=== PATIENT | female | born 2000 | race Caucasian/White ===

== ENCOUNTER 2020-04-17 01:12 | Emergency (ER) | payer SELFPAY ==
[2020-04-17] VITALS (7 sets, daily range): BP systolic 95–122; BP diastolic 49–75; PULSE 65–114; RESP 13–16; TEMP 35.9; O2SAT 97–100; BMI 27.3
--- NOTE | 2020-04-17 01:19 | ED.DCSUM_ITS ---
History of Present Illness Chief Complaint: Substance Abuse Informant: Patient, Significant Other Onset: Yesterday Narrative: Patient presents secondary to nausea and vomiting. Per boyfriend's report at bedside he was not present but reportedly states the patient was nauseated, vomited multiple times, and was too weak to walk to her car. She reportedly did eat to peanut butter cups with 100 mg of THC in each. Patient reports her last menstrual cycle was greater than 1 month ago. She has taken 3- home test. She states that she has family members who had cysts on their ovaries and kidneys that then turned cancerous so she was trying to obtain insurance that she can get checked out. Past Medical History - Allergies and Home Meds Allergies/Adverse Reactions: Allergies No Known Allergies Allergy (Verified 04/17/20 01:17) Primary Care Physician: Care Physician,No Primary [Primary Care Provider] - Smoking Status: Current some day smoker Review of Systems General: Denies: Chills, Fever ENT: Denies: Sore throat Cardiovascular: Reports: Heart racing. Denies: Chest pain Respiratory: Denies: Dyspnea Gastrointestinal: Reports: Nausea, Vomiting Musculoskeletal: Denies: Extremity Pain Skin: Denies: Rash Neurological: Denies: Headache Hematologic: Denies: Easy bruising, Easy bleeding Allergy: Denies: Uticaria Physical Exam Vital Signs/Narrative: Vital Signs Temp Pulse Resp BP Pulse Ox 04/17/20 01:13 96.7 F L 114 H 16 122/75 H 100 Inital Vital Signs reviewed: Yes General: Well nourished, Well developed Head: Normocephalic ENT: Moist mucous membranes Neck: Supple Cardiovascular: Tachycardia Respiratory: No distress, CTA bilaterally Abdomen: Soft, Nontender, Normal bowel sounds Skin: Normal color Neurological: Alert Psychological: Tearful Diagnostic/Tx/Re-eval Laboratory Results 04/17/20 04/17/20 04/17/20 01:23 01:23 01:23 WBC 16.0 H RBC 4.72 Hgb 12.7 Hct 38.7 MCV 82.0 MCH 26.9 L MCHC 32.8 RDW Std Deviation 38.8 RDW Coeff of Julianna 12.9 Plt Count 411 MPV 9.2 Immature Gran % (Auto) 0.500 Neut % (Auto) 68.0 Lymph % (Auto) 25.4 Sheridan % (Auto) 4.9 Eos % (Auto) 0.8 Baso % (Auto) 0.4 Absolute Neuts (auto) 10.9 H Absolute Lymphs (auto) 4.05 Nucleated RBC % 0 Sodium 140 Potassium 3.3 L Chloride 110 H Carbon Dioxide 21.0 Anion Gap 9 BUN 10 Creatinine 0.80 Estim Creat Clear Calc 101.78 Est GFR (MDRD) Af Amer 118 Est GFR (MDRD) Non-Af 98 BUN/Creatinine Ratio 12.6 Glucose 147 H Calcium 9.1 Serum , Qual NEGATIVE - Medical Decision Making Patient was given Zofran and IV fluids. 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 After 5 hours patient is awake and alert, ambulating in the emergency room. Test results are discussed with her. She will be discharged home with her boyfriend at this time. ED Disposition - Plan for ED Patient: Disposition: Home or Assisted Living Diagnosis: Marijuana intoxication Instructions: ED Nausea Vomiting Adult Referrals: Angelica Bernard DO [STAFF PHYSICIAN] -
[2020-04-17 01:31] LABS: Absolute Lymphocyte Count 4.05 X10^3/uL (0.83-4.51); Absolute Neutrophil Count 10.9 X10^3/uL (2.0-7.7); Basophil# 0.06 X10^3/uL; Basophil% 0.4 % (0-1); Eosinophil# 0.12 X10^3/uL; Eosinophils% 0.8 % (0-5); Hematocrit 38.7 % (37-47); Hemoglobin 12.7 g/dL (12.0-15.0); Lymphocyte # 4.05 X10^3/ul (4.0); Lymphocyte % 25.4 % (19-41); Mean Corp Hgb Conc 32.8 g/dL (32-36); Mean Corpuscular Hgb 26.9 pg (27.0-32.0); Mean Platelet Vol. 9.2 fl (6.2-12.0); Monocyte# 0.79 X10^3/uL; Monocyte% 4.9 % (0-10); NRBC Flagged by Analyzer 0 % (0-5); Neutrophil # 10.87 X10^3/uL (2.7-7.7); Platelet Count 411 K/mm3 (150-450); RBC Distribution Width CV 12.9 % (11.6-14.6); RBC Distribution Width SD 38.8 fl (35.1-43.9); Red Blood Count 4.72 M/mm3 (4.2-5.4)
[2020-04-17] MEDS: Ondansetron 4 MG/2 ML Vial IV (01:32)
[2020-04-17] MEDS: 0.9% Normal Saline 1,000 ML 150 ML IV (01:32)
[2020-04-17 01:44] LABS: Internal QC Validated? YES +Cl - CLEAR BKGD; Pregnancy, Serum, hCG Quali. NEGATIVE Negative
[2020-04-17 01:50] LABS: Anion Gap 9 (5-15); BUN 10 mg/dL (7-18); BUN/Creat Ratio 12.6 RATIO (10-20); Calcium,Total 9.1 mg/dL (8.5-10.1); Chloride 110 mmol/L (98-107); EST Glomerular Filtration Rate 98 mL/min (>60); Est Glom Filt Rate - Afr Amer 118 mL/min (>60); Estimated Creatinine Clearance 101.78 ml/min; Glucose 147 mg/dL (74-106); Potassium 3.3 mmol/L (3.5-5.1); Sodium Level 140 mmol/L (136-145)
== END 2020-04-17 06:25 | disposition home or self-care (01) ==
PROVIDERS: Emergency Provider Emergency Medicine
DX: F12.929 Cannabis use, unspecified with intoxication, unspecified (principal); F17.200 Nicotine dependence, unspecified, uncomplicated
CPT/HCPCS: 80048; 84703; 85025; 96361; 96374; 99285; A4216; J2405

== ENCOUNTER 2021-07-21 06:52 | Day surgery (SDC) | payer OTHER, MEDICAID, SELFPAY ==
[2021-07-21 07:15] VITALS: BP 119/78; PULSE 90; RESP 16; TEMP 36.5; O2SAT 97; BMI 26.0
[2021-07-21] MEDS: Lactated Ringers 1,000 ML 15 ML IV (07:19)
[2021-07-21 07:20] LABS: Internal QC Validated? YES +Cl - CLEAR BKGD; Pregnancy, Urine Negative Negative
--- NOTE | 2021-07-21 07:28 | PCM.HP.BLA ---
History and Physical Date of Admission: 07/21/21 Date of Service: 07/11/21 MR#:[id number]:[id number]: COLE WALKER #:[id number]:2000 Provider:Dr. Shemar Mendoza MDAge/Sex: 21/F [facility] Int[facility] Vital Signs 07/11/21 08:26 Height 5 ft 6 in Weight: 156 lb BMI 25.2 BP 124/86 H Blood Pressure Location Rt brachial Position Sitting Respiration 18 Intake Visit Reasons: Esophagogastroduodenoscopy Chief Complaint: EGD Physical Anthropologist Required: No Is patient in pain?: No Allergies No Known Allergies Allergy (Verified 07/11/21 08:25) Medications omeprazole 40 mg capsule,delayed release cap PO 07/11/21 [History Confirmed 07/11/21] PFSH Medical History (Updated 07/11/21 @ 11:[address] Shemar Mendoza MD) Acid reflux Surgical History (Updated 07/11/21 @ 08:22 by Cristine Molina) S/P foot surgery Family History (Updated 07/11/21 @ 08:25 by Cristine Molina) Father Diabetes Heart disease Hypertension Mother Hypertension Kidney disease Brother Thyroid disorder Social History (Updated 07/11/21 @ 08:25 by Cristine Molina) Smoking Status: Current some day smoker tobacco type: e-cigarettes alcohol intake: never HPI HPI HPI: COLE WALKER, is a 21 F who presents to the office today for a lump (globus sensation) since October and acid reflux. They are referred for surgical consultation from Dr. Gonzales. Additional symptoms include: Some bloating and nausea. ENT placed her on omeprazole empirically x3 months. She states that she felt general relief of her symptoms with this medication?something she particularly noticed when she lost the medication for a week and her symptoms came back. However, she has had 2 pharyngeal examinations pre and post therapy and they demonstrated similar levels of inflammation in her posterior pharynx. Regarding her reflux, she states that the symptom goes back as far she can remember. She never brought it to medical attention initially because she just simply felt it was common to have this when eating pastas or pizzas. She also states that carpio syrup makes it hurt. She finds that symptoms are also worse around the time of lying down. She denies any aspiration events. She denies any weight changes. She states about once a month she experiences some pain about her bellybutton that is so intense she can either sit or stand but it always seems to spontaneously remit and is never present when she is in front of medical attention. The bloating and nausea has been experienced for the last 4 months, approximately. She states that this occurs in response to any food?and occasionally is present even without eating. She denies any chance of . She states that her brother had his thyroids removed when he was younger and that she underwent an ultrasound a year ago. She was informed the ultrasound results were unremarkable, yet she was told she is due for repeat study this coming October. Lastly patient notes that she seems to have developed some tonsil stones recently. She states she could feel them rubbing against her tongue. She attempted to seek further evaluation from ENT for this, but ultimatelyre-presented to her PCP and was given information about gargling salt water. She was unable to do this, but did experience spontaneous remission of this symptom. She states that they (her tonsils) initially were puffed up but have now shriveled. She is due to seek a second opinion on this issue soon. ROS General General: No weight change, appetite, fatigue, colon cancer, breast cancer or weakness HEENT HEENT: Yes swollen glands; No difficulty swallowing, eye injury, eye surgery or hoarseness Endo Endocrine: No thyroid disease, diabetes mellitus, thyroid cancer, Hair loss, heat intolerance or cold intolerance Skin Skin: No rash or changing moles Breast Breast: No left breast lump, right breast lump, nipple discharge, breast pain, abnormal mammogram, abnormal US or breast enlargement Musc Musculoskeletal: No back problems, arthritis, rheumatoid arthritis, gout or joint pain Cardio Cardiovascular: No murmur, pacemaker, heart disease, atrial fibrillation, high blood pressure, heart attack, heart stent, palpitations, shortness of breat with exertion or chest pain Psych Psychiatric: No depression, anxiety or hearing voices Resp Respiratory: No shortness of breath, No sleep apnea, No cough, No COPD, No asthma, No emphysema and No wheezing Gastro Gastrointestinal: No abdominal pain, Yes nausea or vomiting, No diarrhea, No constipation, No blood in stool, Yes acid reflux, No hemorrhoids, No ulcers, No gallbladder problem and No black,tarry stools Rahul Hematologic: No blood thinners, No blood disorders, No bleeding, No anemia and No blood clots Neuro Neurologic: No system reviewed and no additional complaints, except as documented, No as per HPI, No abnormal gait, No abnormal hearing, No abnormal movements, No abnormal speech, No behavioral changes, No burning sensations, No confusion, No convulsions, No disequilibrium, No dizziness, No localized weakness, No frequent falls, No headache(s), No lack of coordination, No loss of vision, No memory loss, No numbness, No other visual disturbances, No radicular pain, No restless legs, No sensory deficit, No syncope, No tingling, No tremor(s), No weakness and No other Exam Const General: cooperative Orientation: alert, awake and oriented x3 Neck Neck: normal visual inspection Neck mass: No Thyroid: thyroid normal Lymphatic: lymphadenopathy not noted Resp Effort & Inspection: normal respiratory effort Auscultation: no rales, no rhonchi and no wheezes Cardio Rhythm: abnormal rhythm with ectopic beats (Possible splitting of S2 with respirations but does seem to have ectopic beat) Heart Sounds: S1 normal and S2 normal GI Inspection: normal to inspection, no scars and no visible herniation Palpation: soft, no hernias and nontender Assessment and Plan Assessment and Plan (1) Globus sensation: Status: Acute Comment: 21-year-old female with 8-month history of globus sensation. ENT has performed a in-depth exam and found patient with inflammation of the posterior pharynx suspicious for possible reflux. Patient does confirm a history of symptomatic reflux and even that she had relief with a trial of PPI therapy. Therefore, EGD is reasonable to assess for any possible structuralthat may be contributing to this reflux Plan - Dr. Shemar Mendoza MD: EGD under local MAC (2) Acid reflux: Status: Inactive Comment: 21-year-old female with longstanding history of acid reflux. Patient was symptomatic relief on PPI. Also complaining of new nausea and bloating. I informed the patient this could be multifactorial but the latter may be related to possible H. pylori infection. Therefore, I recommend EGD with biopsies. Plan - Dr. Shemar Mendoza MD: EGD with biopsies under local MAC (3) Bloating symptom: Status: Acute Comment: Recent?onset of nausea and bloating with any oral intake. Symptoms are somewhat suggestive of possible H. pylori infection. Given the above indications for EGD, we will plan to add random antral biopsies to assess for infection. Plan - Dr. Shemar Mendoza MD: EGD with biopsies under local MAC I have re-examined the patient. There are no clinical changes since date of exam. Patient states she did go for a second opinion on her tonsil stones and underwent laryngoscopy at that visit. She is informed at that time that she was on the right track with seeking a EGD as there was some posterior pharyngeal inflammation that required follow-up. She denies any changes to her symptoms as discussed above. Plan to proceed with diagnostic EGD under local MAC and biopsies for rule out H. pylori.
--- NOTE | 2021-07-21 08:00 | EGD_PTH ---
PATIENT: COLE WALKER LOC: EN U#:[id number] AGE/SX: ROOM: RE07/21/[address]: Dr. Shemar Mendoza MD : 2000 BED: DIS: 07/21/2021 SPEC #: [id number] RECD: 07/21/21 10:29 STATUS: GERALDINE RESue #: [id number] RADHA: 07/21/21 08:[address]: Shemar Mendoza DEPT: SURGICAL PATHOLOGY RECD BY: Crystal Sol ENTERED: 07/21/21 10:58 SP TYPE: EGD BIOPSY OT DR: Dr. Ramon Flores, DO Tissues: Gastric mucous membrane Procedures: Surgery Specimen Level IV HEADER OPER[place] [place] DIAGNOSIS: Globus sensation, acid reflux, bloating symptom TISSUE SUBMITTED: Antrum biopsy for histo and H. pylori MICROSCOPIC DIAGNOSIS Antrum biopsy: Mild gastritis. See microscopic description and comment. SJ:emile 07/25/2021 COMMENT The results of immunohistochemistry for Helicobacter pylori will be reported separately ([id number]). MICROSCOPIC DESCRIPTION Slides are reviewed. The specimen shows fragments of gastric mucosa with chronic inflammatory cell infiltrates in the lamina propria consisting of lymphocytes and plasma cells, consistent with mild chronic gastritis. GROSS DESCRIPTION Received in fixative is one container labeled with the patient's name and designated antrum biopsy. The specimen consists of two irregular fragments of light sparrow soft tissue that in aggregate measure 0.6 x 0.3 x 0.1 cm. The specimen is totally submitted in one cassette. / AM:emile 07/21/21 TC:3 CPT: 75588
--- NOTE | 2021-07-21 08:00 | IMM_PTH ---
PATIENT: COLE WALKER LOC: EN U#:[id number] AGE/SX: ROOM: RE07/21/[address]: Dr. Shemar Mendoza MD : 2000 BED: DIS: 07/21/2021 SPEC #: [id number] RECD: 07/21/21 13:21 STATUS: GERALDINE REQ #: [id number] RADHA: 07/21/21 08:[address]: Shemar Mendoza DEPT: IMMUNOHISTOCHEMISTRY RECD BY: Lynn Chavez ENTERED: 07/21/21 13:21 SP TYPE: IMMUNO OTHR DR: Dr. Ramon Flores DO Tissues: Stomach, NOS Procedures: H Pylori (initial) PHYSICIAN & INSTITUTION [place] [address] SPECIMEN INFORMATION: Tissue Source: Antrum biopsy Clinical Info: Globus sensation, acid reflux, bloating symptom Specimen Number: [id number] CPT code: 89552 METHODOLOGY: Deparaffinized sections of prefer/formalin-fixed tissue or PAP/DQ stained slides are incubated with monoclonal/polyclonal antibodies/oligonucleotide probes. Localization is made via biotin free immunoperoxidase method. Appropriate controls are performed and reacted as expected. Results on target cell population are indicated in the following table: RESULTS: ANTIBODY / CLONE RESULT H Pylori (polyclonal) negative These tests were developed and their performance characteristics determined by [facility]. They may not have been cleared or approved by the U.S. Food and Drug Administration. The FDA has determined that such clearance or approval is not necessary. INTERPRETATION: Antrum biopsy: Negative for Helicobacter pylori organisms. SJ:emile 07/25/2021
[2021-07-21 08:20] VITALS: BP 119/78; BP 88/61; PULSE 85; RESP 16; TEMP 36.6; O2SAT 97
--- NOTE | 2021-07-21 08:23 | OP.EGD_ITS ---
Patient Name: Alea Higginbotham Procedure Date: 07/21/2021 7:53 AM Date of : 2000 Age: 21 Procedure: Upper GI endoscopy Indications: Suspected gastro-esophageal reflux disease, Abdominal bloating, Globus sensation, Nausea Providers: Shemar Mendoza MD Medicines: See the Anesthesia note for documentation of the administered medications Patient Profile: Refer to note in patient chart for documentation of history and physical. Patient has symptoms of acute nausea. Complications: No immediate complications. Estimated blood loss: Minimal. Procedure: Pre-Anesthesia Assessment: - The heart rate, respiratory rate, oxygen saturations, blood pressure, adequacy of pulmonary ventilation, and response to care were monitored throughout the procedure. After obtaining informed consent, the endoscope was passed under direct vision. Throughout the procedure, the patient's blood pressure, pulse, and oxygen saturations were monitored continuously. The gastroscope was introduced through the mouth, and advanced to the second part of duodenum. The upper GI endoscopy was accomplished without difficulty. The patient tolerated the procedure fairly well. Scope In: 8:05:44 AM Scope Out: 8:15:41 AM Total Procedure Duration Time 0 hours 9 minutes 57 seconds Findings: The first portion of the duodenum and second portion of the duodenum were normal. No biopsies or other specimens were collected for this exam. Scattered mild inflammation characterized by erythema was found in the gastric body and in the gastric antrum. Biopsies were taken with a cold forceps for histology. Biopsies were taken with a cold forceps for Helicobacter pylori cultures. Estimated blood loss was minimal. The Z-line was regular and was found 38 cm from the incisors. No biopsies or other specimens were collected for this exam. The examined esophagus was normal. No biopsies or other specimens were collected for this exam. Impression: - Normal first portion of the duodenum and second portion of the duodenum. No specimens collected. - Gastritis. Biopsied. - Z-line regular, 38 cm from the incisors. No specimens collected. - Normal esophagus. No specimens collected. Recommendation: - Discharge patient to home (via wheelchair). - Resume regular diet today. - Continue present medications. - Await pathology results. - Telephone my office for pathology results in 1 week. Procedure Code(s): --- Professional --- 04571, Esophagogastroduodenoscopy, flexible, transoral; with biopsy, single or multiple Diagnosis Code(s): --- Professional --- K29.70, Gastritis, unspecified, without bleeding R14.0, Abdominal distension (gaseous) F45.8, Other somatoform disorders R11.0, Nausea CPT copyright 2017 [employer]. All rights reserved. The codes documented in this report are preliminary and upon school bus driver/mechanic review may be revised to meet current compliance requirements. Shemar Mendoza MD 07/21/2021 8:23:26 AM This report has been signed electronically. Number of Addenda: 0 Note Initiated On: 07/21/2021 7:53 AM
--- NOTE | 2021-07-21 08:24 | OP.CCLET_ITS ---
07/21/2021 Ramon Flores Do Re : Upper GI endoscopy procedure for Alea Higginbotham Dear Mark This procedure was performed on June. My impressions and recommendations are as follows: Impressions : - Normal first portion of the duodenum and second portion of the duodenum. No specimens collected. - Gastritis. Biopsied. - Z-line regular, 38 cm from the incisors. No specimens collected. - Normal esophagus. No specimens collected. Recommendations : - Discharge patient to home (via wheelchair). - Resume regular diet today. - Continue present medications. - Await pathology results. - Telephone my office for pathology results in 1 week. My findings are described in the full procedure note, which is enclosed. If I can be of further assistance, please feel free to contact me at Doctor phone number(s): , Work: . Sincerely, Shemar Mendoza MD 07/21/2021 8:23:26 AM This report has been signed electronically.
[2021-07-21 08:25] VITALS: BP 119/78; BP 94/60; PULSE 80; RESP 16; O2SAT 98
[2021-07-21 08:30] VITALS: BP 119/78; BP 99/64; PULSE 88; RESP 16; O2SAT 99
[2021-07-21 08:35] VITALS: BP 103/74; BP 119/78; PULSE 78; RESP 16; TEMP 36; O2SAT 98
[2021-07-21 09:07] VITALS: BP 119/78
== END 2021-07-21 09:16 | disposition home or self-care (01) ==
LOC: EN 06:54 → AC 06:55
PROVIDERS: Anesthesiology; PCP Student in an Organized Health Care Education/Training Program; Referring Provider Student in an Organized Health Care Education/Training Program; Visit Provider Surgery
PROC: 0DJ08ZZ Inspection of Upper Intestinal Tract, Via Natural or Artificial Opening Endoscopic (ICD-10-PCS; CPT 43235; principal; 2021-07-21 07:55)
DX: K29.70 Gastritis, unspecified, without bleeding (principal); K21.9 Gastro-esophageal reflux disease without esophagitis; F45.8 Other somatoform disorders; J45.909 Unspecified asthma, uncomplicated
CPT/HCPCS: 43239; 81025; 88305; 88342; J7120; J2405

== ENCOUNTER 2021-11-17 09:11 | Outpatient (CLI) | payer OTHER, MEDICAID, SELFPAY ==
[2021-11-17 09:58] LABS: Erythrocyte Sedimentation Rate 3 mm/hr (0-30)
[2021-11-17 10:35] LABS: CRP < 2.90 mg/L (0.0-3.0); Thyroid Stim Hormone (TSH) 0.78 uIU/mL (0.358-3.74)
[2021-11-18 17:07] LABS: Endomysial Antibody IgA Negative (Negative)
[2021-11-18 18:11] LABS: Immunoglobulin A 151 mg/dL (87-352); t-Transglutaminase IgA <2 U/mL (0-3)
[2021-11-24 13:08] LABS: Clam <0.10 kU/L (Class 0); Codfish <0.10 kU/L (Class 0); Corn <0.10 kU/L (Class 0); Egg, White <0.10 kU/L (Class 0); Milk (Cow) <0.10 kU/L (Class 0); Peanut <0.10 kU/L (Class 0); SCALLOP <0.10 kU/L (Class 0); Shrimp <0.10 kU/L (Class 0); Soybean <0.10 kU/L (Class 0); Walnut, (Food) <0.10 kU/L (Class 0); Wheat <0.10 kU/L (Class 0)
[2021-11-24 14:11] LABS: SESAME SEED <0.10 kU/L (Class 0)
== END 2021-11-17 23:59 | disposition home or self-care (01) ==
LOC: LAB 09:13
PROVIDERS: PCP Student in an Organized Health Care Education/Training Program; Referring Provider Nurse Practitioner Adult Health; Visit Provider Nurse Practitioner Adult Health
DX: R11.2 Nausea with vomiting, unspecified (principal)
CPT/HCPCS: 36415; 82784; 83516; 84443; 85652; 86003; 86140; 86255

== ENCOUNTER 2022-05-31 18:03 | Emergency (ER) | payer MEDICAID, SELFPAY ==
[2022-05-31 18:04] VITALS: BP 142/93; PULSE 87; RESP 16; TEMP 36.7; O2SAT 99; BMI 23.6
[2022-05-31 19:06] VITALS: RESP 18
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
[2022-05-31] MEDS: HYDROcodone Bitartrate/Apap 5/325 Tablet PO (19:27)
--- NOTE | 2022-05-31 19:48 | ED.RN ---
THIS RN CALLED REPORT TO [facility] FOR PT CONSULT. PT REPORT GIVEN TO YEISON LONGORIA AT 1949. PT IS GOING TO [facility] BY PRIVATE CAR PER DR. SANDOVAL.
== END 2022-05-31 19:51 | disposition home or self-care (01) ==
LOC: ED 19:31
PROVIDERS: Emergency Provider Student in an Organized Health Care Education/Training Program; PCP Student in an Organized Health Care Education/Training Program; Visit Provider Student in an Organized Health Care Education/Training Program
DX: T26.41XA Burn of right eye and adnexa, part unspecified, initial encounter (principal); T20.26XA Burn of second degree of forehead and cheek, initial encounter; X12.XXXA Contact with other hot fluids, initial encounter; Y93.G3 Activity, cooking and baking
CPT/HCPCS: 99283

== ENCOUNTER → 2023-08-17 | Outpatient (CLI) | payer BC, SELFPAY ==
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
[2023-08-17 10:26] LABS: Erythrocyte Sedimentation Rate 4 mm/hr (0-30)
[2023-08-17 10:43] LABS: Vitamin B12 544 pg/mL (211-911); Vitamin D,25 Hydroxy 20.8 ng/mL
[2023-08-17 12:48] LABS: Amylase 38 U/L (25-115); CPK Total, Creatine Kinase 140 U/L (26-192); CRP < 2.90 mg/L (0.0-3.0); LDH 190 U/L (84-246); Lipase 23 U/L (13-75); Magnesium 2.2 mg/dL (1.6-2.6); Rheumatoid Factor < 10.0 IU/mL (<15)
[2023-08-20 12:08] LABS: Anti-Centromere B Ab <0.2 AI (0.0-0.9); Anti-Chromatin <0.2 AI (0.0-0.9); Anti-Jo <0.2 AI (0.0-0.9); Anti-Scleroderma-70 AB <0.2 AI (0.0-0.9); Anti-dsDNA Ab 2 IU/mL (0-9); RNP Ab 0.4 AI (0.0-0.9); SJOGREN'S Anti-SS-A test < 0.2 AI (0.0-0.9); SJOGREN'S Anti-SS-B test < 0.2 AI (0.0-0.9); Smith Ab <0.2 AI (0.0-0.9); Vitamin D 1,25-Dihydroxy 63.7 pg/mL (24.8-81.5)
[2023-08-20 14:08] LABS: Albumin 3.9 g/dL (2.9-4.4); Aldolase 4.9 U/L (3.3-10.3); Alpha-1-Globulins 0.2 g/dL (0.0-0.4); Alpha-2-Globulins 0.8 g/dL (0.4-1.0); CCP IgG Antibodies 4 units (0-19); Cytoplasmic Ab (C-ANCA) <1:20 titer (Neg:<1:20); Gamma Globulin 0.8 g/dL (0.4-1.8); Immunoglobulin A 260 mg/dL (87-352); Immunoglobulin E 6 IU/mL (6-495); Immunoglobulin G 872 mg/dL (586-1602); Immunoglobulin M 103 mg/dL (26-217); PROEL- TOTAL PROTEIN 6.9 g/dL (6.0-8.5); Perinuclear Ab (P-ANCA) <1:20 titer (Neg:<1:20)
== END | disposition home or self-care (01) ==
PROVIDERS: PCP Student in an Organized Health Care Education/Training Program; Referring Provider Internal Medicine Gastroenterology; Visit Provider Internal Medicine Gastroenterology
DX: K21.9 Gastro-esophageal reflux disease without esophagitis (principal); R11.2 Nausea with vomiting, unspecified
CPT/HCPCS: 36415; 82085; 82150; 82306; 82550; 82607; 82652; 82784; 82785; 83615; 83690; 83735; 84165; 85652; 86140; 86200; 86225; 86235; 86256; 86334; 86431

== ENCOUNTER → 2023-09-06 | Outpatient (CLI) | payer BC, SELFPAY ==
--- NOTE | 2023-09-06 10:03 | NM_ITS ---
CLINICAL: 23-year-old female with history of gastroesophageal reflux disease and abdominal distention. SEMI-SOLID PHASE 99m Tc SULFUR COLLOID GASTRIC EMPTYING STUDY COMPARISON: None available FINDINGS: The patient was administered 1.2 mCi of 99m Tc sulfur colloid mixed with oatmeal and consumed per os. Image acquisitions in the anterior-posterior projections were obtained for 60 minutes. There is prompt visualization of the stomach. There is no gastroesophageal reflux identified. First order kinetics are maintained throughout the duration of the acquisitions. The T ? linear fit was extrapolated to be 88.25 minutes, (Normal: 12-56 minutes). NM/Gastric Emptying Study IMPRESSION: 1. ABNORMAL 99m Tc sulfur colloid semi-solid phase (oatmeal) gastric emptying imaging examination. A. There is delayed semi-solid phase gastric emptying compared to normal controls with maintained first order kinetics throughout all components of the examination. (Lilian et al, J Nucl Med Tech 38: 186, 2010). Electronically Signed: Dinesh Medley DO at 23:20 EST ,
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
== END | disposition home or self-care (01) ==
LOC: NM 10:02
PROVIDERS: PCP Student in an Organized Health Care Education/Training Program; Referring Provider Internal Medicine Gastroenterology; Visit Provider Internal Medicine Gastroenterology
DX: R14.0 Abdominal distension (gaseous) (principal); K21.9 Gastro-esophageal reflux disease without esophagitis
CPT/HCPCS: 78264; A9541